=== PATIENT | male | born 1955 | race Caucasian/White ===

== ENCOUNTER → 2019-07-16 | Outpatient (CLI) | payer BC ==
[2019-07-16 10:47] LABS: EOS # 0.2 (0.04-0.40); EOS % 3.1 % (0.0-4.0); HEMATOCRIT 48.7 % (42.0-52.0); HEMOGLOBIN 16.7 g/dL (13.5-18.0); LYMPH# 1.2 (1.50-4.00); MEAN CELL VOLUME 88 fl (78-100); MEAN CORPUSCULAR HEMOGLOBIN 30 pg (27-31); MEAN CORPUSCULAR HGB CONC 34 g/dL (33-37); MEAN PLATELET VOLUME 9.1 fl (7.4-10.4); MONO # 0.6 (0.20-0.80); NEU # 3.5 (1.40-6.50); PLATELET COUNT 186 K/mm3 (130-400); RED BLOOD COUNT 5.56 M/mm3 (4.20-5.60); RED CELL DISTRIBUTION WIDTH 13.9 % (11.5-14.5); WHITE BLOOD COUNT 5.5 K/mm3 (4.8-10.8)
== END ==
LOC: LAB 10:34
PROVIDERS: Family Medicine
DX: R07.9 Chest pain, unspecified (principal)